=== PATIENT | male | born 1955 | race Caucasian/White ===

== ENCOUNTER 2020-01-28 11:27 | Outpatient (CLI) | payer MEDICARE, SELFPAY ==
[2020-01-28 11:42] LABS: Add Urine Microscopic? YES; Appearance Urine Cloudy (Clear); Bilirubin Urine Negative (Negative); Blood Urine 1+ (Negative); Color Urine Yellow (Yellow); Glucose Urine UA Negative (Negative); Ketones Urine Negative (Negative); Leukocyte Esterase Ur 3+ LEU/UL (Negative); Nitrate Urine Negative (Negative); Protein Urine Trace (Negative); Specific Grav Ur <= 1.005 (1.010-1.020); Urobilinogen Urine 0.2 mg/dL (0.2-1.0)
[2020-01-28 11:47] LABS: Bacteria Urine 2+ /hpf; WBC Urine >75 /hpf (0-3)
== END 2020-01-28 11:28 | disposition home or self-care (01) ==
DX: R35.0 Frequency of micturition (principal)
CPT/HCPCS: 81001; 87086; 87088